=== PATIENT | female | born 2000 | race Caucasian/White ===

== ENCOUNTER 2020-05-17 10:33 | Emergency (ER) | payer OTHER ==
[2020-05-17 12:23] LABS: BASOPHIL 0.2 % (0-2); EOSINOPHIL 0.1 % (0-5); HCT 41.9 % (37.0-47.0); LYMPHOCYTE 15.5 % (15-48); MCHC 33.4 g/dL (32.0-36.0); MCV 86.9 fL (78.0-100.0); MONOCYTE 2.7 % (0-12); MPV 10.8 fL (6.0-9.5); NEUTROPHIL 81.3 % (41-80); NRBC 0; PLT 217 K/uL (150-400); RBC 4.82 M/uL (4.20-5.40); RDW 12.2 % (11.5-14.0); WBC 8.1 K/uL (4.0-10.5)
[2020-05-17 12:40] LABS: BILIRUBIN - TOTAL 0.4 mg/dL (0.2-1.0); BUN/CREAT RATIO (CALC) 17.8 RATIO; CREATININE 0.73 mg/dL (0.51-0.95); GLOBULIN (CALCULATION) 3.8 g/dL; POTASSIUM 4.1 mmol/L (3.5-5.1); TOTAL PROTEIN 7.8 g/dL (6.4-8.2)
[2020-05-17 13:17] LABS: BILIRUBIN NEGATIVE (NEGATIVE); BLOOD NEGATIVE Ery/uL (NEGATIVE); COLOR YELLOW (YELLOW); GLUCOSE (U) NORMAL (NORMAL); LEUKOCYTES TRACE Leu/uL (NEGATIVE); NITRITE NEGATIVE (NEGATIVE); PROTEIN NEGATIVE (NEGATIVE); UROBILINOGEN 0.2 mg/dL (0.2-1.0); pH 8.5 (5.0-9.0)
[2020-05-17 13:19] LABS: CLARITY SLIGHTLY HAZY (CLEAR)
[2020-05-17 13:31] LABS: MARIJUANA (THC) POSITIVE (NEGATIVE)
[2020-05-17 13:32] LABS: ECSTASY (MDMA) NEGATIVE (NEGATIVE); METHADONE NEGATIVE (NEGATIVE); OPIATES POSITIVE (NEGATIVE)
[2020-05-17 13:34] LABS: AMPHETAMINES NEGATIVE (NEGATIVE); BARBITURATES NEGATIVE (NEGATIVE); OXYCODONE NEGATIVE (NEGATIVE)
[2020-05-17] MEDS ORDERED: ZOFRAN4 M1 PO (16:00)
[2020-05-17] MEDS ORDERED: CLONIDINE HCL0.1 MG PO (16:00)
--- NOTE | 2020-05-17 18:21 | NUR ---
RECEIVED REQUEST FROM DOCTOR TO [facility]. GAVE PT AND HER FATHER INFORMATION REGARDING TREATMENT FACILITIES.
== END 2020-05-17 16:15 | disposition home or self-care (01) ==
LOC: FER 10:33
PROVIDERS: Emergency Medicine
DX: F11.23 Opioid dependence with withdrawal (principal); F17.210 Nicotine dependence, cigarettes, uncomplicated
CPT/HCPCS: 36415; 80053; 80305; 81003; 83690; 85025; 87088; 99284; J2060; J2405; J7030